=== PATIENT | female | born 2000 | race Caucasian/White ===

== ENCOUNTER 2021-11-04 07:53 | Emergency (ER) | payer OTHER ==
[2021-11-04] MEDS ORDERED: Sodium Chloride 0.9% 1,000 ML IV ONE (08:15)
[2021-11-04 09:03] LABS: CARBON DIOXIDE,CO2 26.4 mmol/L (21.0-32.0)
== END 2021-11-04 10:54 | disposition home or self-care (01) ==
LOC: MW.ED 07:53
DX: N93.9 Abnormal uterine and vaginal bleeding, unspecified (principal); Z86.16 Personal history of COVID-19; Z20.822 Contact with and (suspected) exposure to COVID-19
CPT/HCPCS: 36415; 80053; 84443; 84703; 85025; 85610; 85730; 86850; 86900; 86901; 87635; 93005; 96360; 96372; 99284; J1050; J7030; 93010; U0002

== ENCOUNTER 2022-02-22 18:35 | Emergency (ER) | payer BC, OTHER ==
[2022-02-22] MEDS ORDERED: Sodium Chloride 0.9% 10 ML Syringe FLUSH PRN (20:23)
[2022-02-22] MEDS ORDERED: Sodium Chloride 0.9% 2.5 ML Syringe FLUSH PRN (20:23)
[2022-02-22] MEDS ORDERED: Ketorolac 30 MG/ML SDV IVPUSH ONE (20:41)
[2022-02-22 21:13] LABS: CARBON DIOXIDE,CO2 26.5 mmol/L (21.0-32.0); POTASSIUM,K 3.3 mmol/L (3.5-5.1)
== END 2022-02-22 22:27 | disposition home or self-care (01) ==
LOC: MW.ED 18:35
DX: R10.2 Pelvic and perineal pain (principal); Z90.49 Acquired absence of other specified parts of digestive tract; Z86.16 Personal history of COVID-19
CPT/HCPCS: 36415; 76830; 80053; 81001; 81025; 85025; 87086; 96374; 99284; J1885; J3490

== ENCOUNTER 2022-06-14 09:52 | Day surgery (SDC) | payer BC ==
[~2022-06-14 09:52] MED LIST: Lactated Ringers 1,000 ML IV SCH
[2022-06-14] MEDS ORDERED: Dexamethasone 4 MG/ML 5 ML MDV ONE (10:51)
[2022-06-14] MEDS ORDERED: Ketorolac 30 MG/ML SDV ONE (10:51)
[2022-06-14] MEDS ORDERED: Sugammadex Sodium 200 MG/2 ML VIAL ONE (10:51)
[2022-06-14] MEDS ORDERED: Rocuronium Bromide 50 MG/5 ML Syringe ONE (10:51)
[2022-06-14] MEDS ORDERED: Lidocaine 2% 5 ML SDV ONE (10:51)
[2022-06-14] MEDS ORDERED: Ondansetron 4 MG/2 ML SDV ONE (10:51)
[2022-06-14] MEDS ORDERED: Propofol 200 MG/20 ML SDV ONE (10:52)
[2022-06-14] MEDS ORDERED: fentaNYL 100 MCG/2 ML SDV ONE ×2 (10:52→12:00)
[2022-06-14 10:55] LABS: CARBON DIOXIDE,CO2 27.1 mmol/L (21.0-32.0); POTASSIUM,K 4.1 mmol/L (3.5-5.1)
[2022-06-14] MEDS ORDERED: Metoclopramide 10 MG/2 ML SDV IVPUSH PRN (11:05)
[2022-06-14] MEDS ORDERED: HYDROmorphone 1 MG/ML Syringe IVPUSH PRN (11:05)
[2022-06-14] MEDS ORDERED: Albuterol 0.083% 2.5 MG/3 ML Neb Soln NEB PRN (11:05)
[2022-06-14] MEDS ORDERED: Morphine 2 MG/ML SYRINGE IVPUSH PRN (11:05)
[2022-06-14] MEDS ORDERED: fentaNYL 50 MCG/ML SDV IVPUSH PRN (11:05)
[2022-06-14] MEDS ORDERED: Naloxone 0.4 MG/ML SDV IVPUSH PRN (11:05)
[2022-06-14] MEDS ORDERED: Ondansetron 4 MG/2 ML SDV IVPUSH PRN (11:05)
[2022-06-14] MEDS ORDERED: Bupivacaine 0.25% 30 ML SDV ONE (11:22)
[2022-06-14] MEDS ORDERED: ePHEDrine 50 MG/ML SDV ONE (11:53)
[2022-06-14] MEDS ORDERED: HYDROmorphone 2 MG/ML Syringe ONE (12:47)
[2022-06-14] MEDS ORDERED: Acetaminophen/oxyCODONE 325-5 MG Tab PO PRN (13:07)
== END 2022-06-14 14:47 | disposition home or self-care (01) ==
LOC: MW.SDS 09:52
PROVIDERS: ATTEND Obstetrics & Gynecology
DX: N80.353 Endometriosis of bilateral pelvic sidewall, unspecified depth (principal); N80.329 Endometriosis of the posterior cul-de-sac, unspecified depth; D27.0 Benign neoplasm of right ovary; G43.909 Migraine, unspecified, not intractable, without status migrainosus; Z91.010 Allergy to peanuts; F17.290 Nicotine dependence, other tobacco product, uncomplicated
CPT/HCPCS: 36415; 58662; 80053; 81025; 85027; 86850; 86900; 86901; J0131; J1100; J1170; J1885; J2704; J3010; J3490; J7120; J2405

== ENCOUNTER 2022-07-17 21:07 | Emergency (ER) | payer OTHER, BC ==
[2022-07-17] MEDS ORDERED: Diazepam 2 MG Tab PO ONE (21:33)
[2022-07-17] MEDS ORDERED: Acetaminophen 325 MG Tab PO ONE (21:33)
[2022-07-17] MEDS ORDERED: Ibuprofen 600 MG Tab PO ONE (21:33)
== END 2022-07-18 00:15 | disposition home or self-care (01) ==
LOC: MW.ED 21:07
DX: S13.4XXA Sprain of ligaments of cervical spine, initial encounter (principal); S80.11XA Contusion of right lower leg, initial encounter; Z91.010 Allergy to peanuts; Z86.16 Personal history of COVID-19; V89.2XXA Person injured in unspecified motor-vehicle accident, traffic, initial encounter; Y92.410 Unspecified street and highway as the place of occurrence of the external cause
CPT/HCPCS: 71045; 72125; 73590; 99284; A9270; 99282

== ENCOUNTER 2022-07-21 13:25 | Emergency (ER) | payer OTHER, BC | END 2022-07-21 15:10 | disposition home or self-care (01) | LOC: MW.ED 13:25 | DX: S06.0X0A Concussion without loss of consciousness, initial encounter (principal); Z91.010 Allergy to peanuts; Z86.16 Personal history of COVID-19; V49.49XA Driver injured in collision with other motor vehicles in traffic accident, initial encounter; Y92.410 Unspecified street and highway as the place of occurrence of the external cause | CPT/HCPCS: 99282; 99283 ==

== ENCOUNTER 2022-08-12 08:05 | Emergency (ER) | payer BC | END 2022-08-12 09:36 | disposition home or self-care (01) | LOC: MW.ED 08:05 | DX: M54.2 Cervicalgia (principal); M54.6 Pain in thoracic spine; Z86.16 Personal history of COVID-19; Z91.010 Allergy to peanuts; Z79.899 Other long term (current) drug therapy | CPT/HCPCS: 99282; 99283 ==

== ENCOUNTER 2023-10-02 10:51 | Emergency (ER) | payer OTHER ==
[2023-10-02] MEDS: Sodium Chloride 0.9% 1,000 ML IV ONE (12:29)
[2023-10-02] MEDS: Ondansetron 4 MG/2 ML SDV IVPUSH ONE (12:29)
[2023-10-02] MEDS: Ketorolac 30 MG/ML SDV IVPUSH ONE (12:32)
[2023-10-02] MEDS: Ketorolac 30 MG/ML SDV IM ONE (12:32)
[2023-10-02 12:43] LABS: BASOPHILS ABSOLUTE AUTO 0.04 K/uL (0.00-0.20); BASOPHILS PERCENT AUTO 0.4 % (0.0-1.0); EOSINOPHILS ABSOLUTE AUTO 0.04 K/uL (0.00-0.45); EOSINOPHILS PERCENT AUTO 0.4 % (0.0-6.0); HEMATOCRIT 42.2 % (37.0-47.0); HEMOGLOBIN 15.1 g/dL (12.0-16.0); IMMATURE GRAN ABSOLUTE AUTO 0.02 K/uL (0.00-0.05); IMMATURE GRAN PERCENT AUTO 0.2 % (0.0-0.4); LYMPHOCYTES ABSOLUTE AUTO 2.38 K/uL (1.00-4.80); LYMPHOCYTES PERCENT AUTO 25.7 % (24.0-44.0); MEAN CORPUSCULAR HGB CONC 35.8 g/dL (32.0-36.0); MEAN CORPUSCULAR VOLUME 89.4 fL (83.0-99.0); MEAN PLATELET VOLUME 8.9 fL (9.4-12.3); MONOCYTES ABSOLUTE AUTO 0.41 K/uL (0.00-0.80); MONOCYTES PERCENT AUTO 4.4 % (0.0-8.0); NEUTROPHILS ABSOLUTE AUTO 6.37 K/uL (1.80-7.70); NEUTROPHILS PERCENT AUTO 68.9 % (41.0-71.0); PLATELET COUNT,PLT 350 K/uL (150-400); RED BLOOD CELL COUNT 4.72 M/uL (4.10-5.30); WHITE BLOOD CELL COUNT,WBC 9.26 K/uL (3.9-11.3)
[2023-10-02 13:26] LABS: A/G RATIO 1.1 (0.9-1.6); BILIRUBIN TOTAL 0.8 mg/dL (0.2-1.0); CALCIUM 9.4 mg/dL (8.5-10.1); CARBON DIOXIDE,CO2 23.9 mmol/L (21.0-32.0); EST CRCL DRUG DOSING (CG) 75.55 mL/min; POTASSIUM,K 3.6 mmol/L (3.5-5.1); PROTEIN TOTAL,TP 7.6 g/dL (6.4-8.2)
[2023-10-02 13:33] LABS: APPEARANCE,URINE CLEAR; BILIRUBIN,URINE NEGATIVE (NEGATIVE); COLOR,URINE YELLOW; GLUCOSE,URINE NEGATIVE (NEGATIVE); KETONES,URINE NEGATIVE (NEGATIVE); LEUKOCYTE ESTERASE,URINE NEGATIVE (NEGATIVE); NITRITE,URINE POSITIVE (NEGATIVE); OCCULT BLOOD,URINE NEGATIVE (NEGATIVE); PROTEIN,URINE NEGATIVE (NEGATIVE); UROBILINOGEN,URINE 0.2 EU/dL (<2.0)
[2023-10-02 14:01] LABS: BACTERIA,URINE 3+ (NEGATIVE); EPITHELIAL CELLS,URINE FEW (NONE-FEW); RBC,URINE 0-1 (0-2/HPF); WBC,URINE 0-3 (0-5/HPF)
[2023-10-02 14:22] LABS: CANDIDA DNA PROBE NEGATIVE (NEGATIVE); GARDNERELLA DNA PROBE NEGATIVE (NEGATIVE); TRICHOMONAS DNA PROBE NEGATIVE (NEGATIVE)
[2023-10-02] MEDS: Nitrofurantoin Monohydrate/Macrocrystalline 100 MG Cap PO ONE (15:01)
[2023-10-02] MEDS: Acetaminophen 500 MG Tab PO ONE (15:01)
[2023-10-02] MEDS: Phenazopyridine 200 MG Tab PO ONE (15:01)
[2023-10-02 15:21] LABS: C. TRACHOMATIS BY PCR NOT DETECTED; N. GONORRHOEAE BY PCR NOT DETECTED
== END 2023-10-02 15:44 | disposition home or self-care (01) ==
LOC: MW.ED 10:51
DX: N39.0 Urinary tract infection, site not specified (principal); Z86.16 Personal history of COVID-19; Z79.899 Other long term (current) drug therapy; Z91.010 Allergy to peanuts; Z75.8 Other problems related to medical facilities and other health care
CPT/HCPCS: 36415; 76856; 80053; 81001; 81025; 85025; 87086; 87480; 87491; 87510; 87591; 87660; 96361; 96374; 96375; 99284; A9270; J1885; J2405; J7030

== ENCOUNTER 2023-10-23 11:40 | Emergency (ER) | payer OTHER ==
[2023-10-23] MEDS: Ketorolac 60 MG/2 ML SDV IM ONE (12:07)
[2023-10-23 12:11] LABS: BASOPHILS ABSOLUTE AUTO 0.06 K/uL (0.00-0.20); BASOPHILS PERCENT AUTO 0.9 % (0.0-1.0); EOSINOPHILS PERCENT AUTO 1.6 % (0.0-6.0); HEMATOCRIT 38.4 % (37.0-47.0); IMMATURE GRAN ABSOLUTE AUTO 0.01 K/uL (0.00-0.05); IMMATURE GRAN PERCENT AUTO 0.2 % (0.0-0.4); LYMPHOCYTES ABSOLUTE AUTO 1.96 K/uL (1.00-4.80); MEAN CORPUSCULAR HEMOGLOBIN 32.1 pg (28.0-32.0); MEAN CORPUSCULAR HGB CONC 36.5 g/dL (32.0-36.0); MEAN CORPUSCULAR VOLUME 88.1 fL (83.0-99.0); MEAN PLATELET VOLUME 8.9 fL (9.4-12.3); MONOCYTES PERCENT AUTO 4.7 % (0.0-8.0); NEUTROPHILS PERCENT AUTO 61.6 % (41.0-71.0); PLATELET COUNT,PLT 316 K/uL (150-400); RED BLOOD CELL COUNT 4.36 M/uL (4.10-5.30); WHITE BLOOD CELL COUNT,WBC 6.33 K/uL (3.9-11.3)
[2023-10-23 12:38] LABS: A/G RATIO 1.1 (0.9-1.6); ALBUMIN 3.8 g/dL (3.4-5.0); BILIRUBIN TOTAL 0.7 mg/dL (0.2-1.0); CALCIUM 9.1 mg/dL (8.5-10.1); CARBON DIOXIDE,CO2 24.1 mmol/L (21.0-32.0); CREATININE 1.1 mg/dL (0.6-1.0); EST CRCL DRUG DOSING (CG) 68.69 mL/min; POTASSIUM,K 3.8 mmol/L (3.5-5.1); PROTEIN TOTAL,TP 7.2 g/dL (6.4-8.2)
== END 2023-10-23 13:20 | disposition home or self-care (01) ==
LOC: MW.ED 11:40
DX: R10.2 Pelvic and perineal pain (principal); Z90.49 Acquired absence of other specified parts of digestive tract; Z91.010 Allergy to peanuts; Z79.899 Other long term (current) drug therapy
CPT/HCPCS: 36415; 76857; 80053; 84703; 85025; 96372; 99284; J1885

== ENCOUNTER 2023-11-13 16:33 | Emergency (ER) | payer OTHER ==
[2023-11-13 17:07] LABS: BASOPHILS ABSOLUTE AUTO 0.06 K/uL (0.00-0.20); BASOPHILS PERCENT AUTO 0.7 % (0.0-1.0); EOSINOPHILS ABSOLUTE AUTO 0.13 K/uL (0.00-0.45); EOSINOPHILS PERCENT AUTO 1.6 % (0.0-6.0); HEMATOCRIT 37.4 % (37.0-47.0); HEMOGLOBIN 13.6 g/dL (12.0-16.0); IMMATURE GRAN ABSOLUTE AUTO 0.01 K/uL (0.00-0.05); IMMATURE GRAN PERCENT AUTO 0.1 % (0.0-0.4); LYMPHOCYTES PERCENT AUTO 34.1 % (24.0-44.0); MEAN CORPUSCULAR HEMOGLOBIN 31.9 pg (28.0-32.0); MEAN CORPUSCULAR HGB CONC 36.4 g/dL (32.0-36.0); MEAN CORPUSCULAR VOLUME 87.8 fL (83.0-99.0); MEAN PLATELET VOLUME 8.7 fL (9.4-12.3); MONOCYTES ABSOLUTE AUTO 0.41 K/uL (0.00-0.80); NEUTROPHILS ABSOLUTE AUTO 4.81 K/uL (1.80-7.70); NEUTROPHILS PERCENT AUTO 58.5 % (41.0-71.0); PLATELET COUNT,PLT 338 K/uL (150-400); RED BLOOD CELL COUNT 4.26 M/uL (4.10-5.30); WHITE BLOOD CELL COUNT,WBC 8.22 K/uL (3.9-11.3)
[2023-11-13] MEDS: Ondansetron 4 MG Tab.DIS PO ONE (17:17)
[2023-11-13] MEDS: Acetaminophen/HYDROcodone 325-5 MG Tab PO ONE (17:17)
[2023-11-13 17:33] LABS: ALBUMIN 3.6 g/dL (3.4-5.0); BILIRUBIN TOTAL 0.4 mg/dL (0.2-1.0); CALCIUM 9.4 mg/dL (8.5-10.1); CARBON DIOXIDE,CO2 26.5 mmol/L (21.0-32.0); EST CRCL DRUG DOSING (CG) 72.38 mL/min; POTASSIUM,K 3.8 mmol/L (3.5-5.1); PROTEIN TOTAL,TP 7.2 g/dL (6.4-8.2)
[2023-11-13 18:17] LABS: BILIRUBIN,URINE NEGATIVE (NEGATIVE); COLOR,URINE YELLOW; GLUCOSE,URINE NEGATIVE (NEGATIVE); KETONES,URINE NEGATIVE (NEGATIVE); LEUKOCYTE ESTERASE,URINE NEGATIVE (NEGATIVE); NITRITE,URINE NEGATIVE (NEGATIVE); OCCULT BLOOD,URINE LARGE (NEGATIVE); PROTEIN,URINE NEGATIVE (NEGATIVE)
[2023-11-13 18:27] LABS: AMORPHOUS SEDIMENT,URINE FEW (NEGATIVE); APPEARANCE,URINE SLT CLOUDY; EPITHELIAL CELLS,URINE FEW (NONE-FEW)
[2023-11-13 18:28] LABS: BACTERIA,URINE 2+ (NEGATIVE)
[2023-11-13] MEDS: Amoxicillin/Clavulanate K 875-125 MG Tab PO ONE (19:09)
== END 2023-11-13 19:11 | disposition home or self-care (01) ==
LOC: MW.ED 16:33
DX: N39.0 Urinary tract infection, site not specified (principal); R10.2 Pelvic and perineal pain; Z91.010 Allergy to peanuts; Z79.899 Other long term (current) drug therapy; Z86.16 Personal history of COVID-19
CPT/HCPCS: 36415; 80053; 81001; 81025; 85025; 87086; 99284; A9270; 87088; 87186

== ENCOUNTER 2023-11-16 15:45 | Emergency (ER) | payer OTHER ==
[2023-11-16] MEDS: Ondansetron 4 MG/2 ML SDV IVPUSH STA (16:38)
[2023-11-16] MEDS: Ketorolac 30 MG/ML SDV IVPUSH STA (16:38)
[2023-11-16] MEDS: fentaNYL 50 MCG/ML SDV IVPUSH STA ×2 (16:38→18:30)
[2023-11-16] MEDS: Sodium Chloride 0.9% 10 ML Syringe FLUSH PRN (16:39)
[2023-11-16] MEDS: Sodium Chloride 0.9% 1,000 ML IV STA (16:39)
[2023-11-16] MEDS: Sodium Chloride 0.9% 2.5 ML Syringe FLUSH PRN (16:39)
[2023-11-16 16:57] LABS: BASOPHILS ABSOLUTE AUTO 0.03 K/uL (0.00-0.20); BASOPHILS PERCENT AUTO 0.4 % (0.0-1.0); EOSINOPHILS ABSOLUTE AUTO 0.05 K/uL (0.00-0.45); EOSINOPHILS PERCENT AUTO 0.7 % (0.0-6.0); HEMATOCRIT 37.8 % (37.0-47.0); HEMOGLOBIN 13.6 g/dL (12.0-16.0); IMMATURE GRAN ABSOLUTE AUTO 0.02 K/uL (0.00-0.05); IMMATURE GRAN PERCENT AUTO 0.3 % (0.0-0.4); LYMPHOCYTES ABSOLUTE AUTO 2.48 K/uL (1.00-4.80); LYMPHOCYTES PERCENT AUTO 34.5 % (24.0-44.0); MEAN CORPUSCULAR HEMOGLOBIN 31.4 pg (28.0-32.0); MEAN CORPUSCULAR VOLUME 87.3 fL (83.0-99.0); MEAN PLATELET VOLUME 8.9 fL (9.4-12.3); MONOCYTES ABSOLUTE AUTO 0.36 K/uL (0.00-0.80); NEUTROPHILS ABSOLUTE AUTO 4.25 K/uL (1.80-7.70); NEUTROPHILS PERCENT AUTO 59.1 % (41.0-71.0); PLATELET COUNT,PLT 315 K/uL (150-400); RED BLOOD CELL COUNT 4.33 M/uL (4.10-5.30); WHITE BLOOD CELL COUNT,WBC 7.19 K/uL (3.9-11.3)
[2023-11-16 17:22] LABS: ALBUMIN 3.6 g/dL (3.4-5.0); BILIRUBIN TOTAL 0.9 mg/dL (0.2-1.0); CALCIUM 9.7 mg/dL (8.5-10.1); CARBON DIOXIDE,CO2 27.4 mmol/L (21.0-32.0); CREATININE 1.1 mg/dL (0.6-1.0); EST CRCL DRUG DOSING (CG) 65.8 mL/min; POTASSIUM,K 3.7 mmol/L (3.5-5.1); PROTEIN TOTAL,TP 7.2 g/dL (6.4-8.2)
[2023-11-16 17:30] LABS: TSH ULTRASENSITIVE 2.62 uIU/mL (0.36-3.74)
== END 2023-11-16 18:59 | disposition home or self-care (01) ==
LOC: MW.ED 15:45
DX: N93.9 Abnormal uterine and vaginal bleeding, unspecified (principal); Z79.899 Other long term (current) drug therapy; Z91.010 Allergy to peanuts; Z75.8 Other problems related to medical facilities and other health care
CPT/HCPCS: 36415; 80053; 84443; 84703; 85025; 85610; 96361; 96374; 96375; 96376; 99284; J1885; J2405; J3010; J3490; J7030

== ENCOUNTER 2024-08-23 06:30 | Emergency (ER) | payer BC ==
[2024-08-23 07:05] LABS: BASOPHILS ABSOLUTE AUTO 0.06 K/uL (0.00-0.20); BASOPHILS PERCENT AUTO 0.9 % (0.0-1.0); EOSINOPHILS ABSOLUTE AUTO 0.26 K/uL (0.00-0.45); EOSINOPHILS PERCENT AUTO 3.7 % (0.0-6.0); HEMATOCRIT 41.1 % (37.0-47.0); HEMOGLOBIN 14.2 g/dL (12.0-16.0); IMMATURE GRAN ABSOLUTE AUTO 0.02 K/uL (0.00-0.05); IMMATURE GRAN PERCENT AUTO 0.3 % (0.0-0.4); LYMPHOCYTES ABSOLUTE AUTO 2.13 K/uL (1.00-4.80); LYMPHOCYTES PERCENT AUTO 30.4 % (24.0-44.0); MEAN CORPUSCULAR HEMOGLOBIN 31.1 pg (28.0-32.0); MEAN CORPUSCULAR HGB CONC 34.5 g/dL (32.0-36.0); MEAN CORPUSCULAR VOLUME 89.9 fL (83.0-99.0); MONOCYTES ABSOLUTE AUTO 0.43 K/uL (0.00-0.80); MONOCYTES PERCENT AUTO 6.1 % (0.0-8.0); NEUTROPHILS PERCENT AUTO 58.6 % (41.0-71.0); PLATELET COUNT,PLT 303 K/uL (150-400); RED BLOOD CELL COUNT 4.57 M/uL (4.10-5.30)
[2024-08-23 07:08] LABS: APPEARANCE,URINE CLEAR; BILIRUBIN,URINE NEGATIVE (NEGATIVE); COLOR,URINE YELLOW; GLUCOSE,URINE NEGATIVE (NEGATIVE); KETONES,URINE NEGATIVE (NEGATIVE); LEUKOCYTE ESTERASE,URINE NEGATIVE (NEGATIVE); NITRITE,URINE NEGATIVE (NEGATIVE); OCCULT BLOOD,URINE TRACE-LYSED (NEGATIVE); PROTEIN,URINE NEGATIVE (NEGATIVE); UROBILINOGEN,URINE 0.2 EU/dL (<2.0)
[2024-08-23 07:15] LABS: BACTERIA,URINE 1+ (NEGATIVE); MUCUS,URINE LIGHT (NONE-MOD); RBC,URINE 0-3 (0-2/HPF); SQUAMOUS EPITHELIAL CELLS,UR FEW; WBC,URINE 0-2 (0-5/HPF)
[2024-08-23] MEDS: Ketorolac 30 MG/ML SDV IVPUSH ONE (07:29)
[2024-08-23] MEDS: Acetaminophen 500 MG Tab PO ONE (07:29)
[2024-08-23] MEDS: Ondansetron 4 MG/2 ML SDV IVPUSH ONE (07:30)
[2024-08-23 07:31] LABS: A/G RATIO 1.2 (0.9-1.6); ALBUMIN 3.7 g/dL (3.4-5.0); BILIRUBIN TOTAL 0.7 mg/dL (0.2-1.0); CALCIUM 8.7 mg/dL (8.5-10.1); CARBON DIOXIDE,CO2 28.9 mmol/L (21.0-32.0); EST CRCL DRUG DOSING (CG) 71.76 mL/min; MAGNESIUM 1.8 mg/dL (1.8-2.4); POTASSIUM,K 4.1 mmol/L (3.5-5.1); PROTEIN TOTAL,TP 6.9 g/dL (6.4-8.2)
[2024-08-23] MEDS: Sodium Chloride 0.9% 1,000 ML IV ONE (07:31)
[2024-08-23] MEDS: Morphine 2 MG/ML SYRINGE IVPUSH PRN (08:44)
== END 2024-08-23 08:55 | disposition home or self-care (01) ==
LOC: MW.ED 06:30
DX: N93.9 Abnormal uterine and vaginal bleeding, unspecified (principal); Z90.49 Acquired absence of other specified parts of digestive tract; Z97.5 Presence of (intrauterine) contraceptive device; Z91.010 Allergy to peanuts; Z79.899 Other long term (current) drug therapy
CPT/HCPCS: 36415; 76830; 80053; 81001; 81025; 83690; 83735; 85025; 96361; 96374; 96375; 99284; A9270; J1885; J2270; J2405; J7030

== ENCOUNTER 2025-01-13 16:09 | Emergency (ER) | payer BC | END 2025-01-13 18:13 | disposition home or self-care (01) | LOC: MW.ED 16:09 | DX: J02.9 Acute pharyngitis, unspecified (principal); Z91.010 Allergy to peanuts; Z79.899 Other long term (current) drug therapy; Z90.49 Acquired absence of other specified parts of digestive tract | CPT/HCPCS: 87651; 99283; 99284 ==